=== PATIENT | female | born 1940 | race Caucasian/White ===

== ENCOUNTER → 2016-11-22 | Outpatient (CLI) | payer MEDICARE, OTHER ==
[~2016-11-22] MED LIST: ALLEGRA60 M2 PO; ARMOUR THYROID30 M1 PO; SERTRALINE HYD100 MG PO; TIMOLOL MALEATE5 M1 OPH; XARELTO15 M1 PO
== END | disposition home or self-care (01) ==
LOC: MAMMO 02:58
DX: Z12.31 Encounter for screening mammogram for malignant neoplasm of breast (principal)